=== PATIENT | female | born 1955 | race Hispanic/Latino ===

== ENCOUNTER 2025-03-14 23:39 | Emergency (ER) | payer OTHER ==
[~2025-03-14] VITALS: Ht 162.6 cm; Wt 96.6 kg
[~2025-03-14 23:39] MED LIST: ACIDOPHILUS1 EAC1 PO; CALCIUM CARBON500 MG PO; CYCLOBENZAPRINE5 MG PO; VITAMIN E200 UNI2 PO
[2025-03-14 23:52] VITALS: PULSE 73; RESP 18; TEMP 98.2; O2SAT 99
[2025-03-15] MEDS: ONDANSETRON HCL 4 MG ORAL DISINTEGRATING TAB PO ONE (01:56)
[2025-03-15] MEDS ORDERED: HYDROCODON-ACE1 EA11 PO (02:02)
[2025-03-15] MEDS ORDERED: ONDANSETRON ODT4 MG SL (02:02)
[2025-03-15] MEDS: HYDROCODONE/APAP 5MG-325MG TAB PO ONE (02:05)
[2025-03-15 02:12] VITALS: BP 144/76; PULSE 76; RESP 18
== END 2025-03-15 02:17 | disposition home or self-care (01) ==
LOC: ER 03-15 00:30
DX: M25.521 Pain in right elbow (principal); S20.211A Contusion of right front wall of thorax, initial encounter; S90.111A Contusion of right great toe without damage to nail, initial encounter; W01.0XXA Fall on same level from slipping, tripping and stumbling without subsequent striking against object, initial encounter; Y93.01 Activity, walking, marching and hiking; Y92.89 Other specified places as the place of occurrence of the external cause; I10 Essential (primary) hypertension; E78.5 Hyperlipidemia, unspecified; Z85.3 Personal history of malignant neoplasm of breast
CPT/HCPCS: 70450; 71250; 72125; 73030; 73060; 73080; 73090; 73110; 73620; 99283; Q0162